=== PATIENT | female | born 1975 | race American Indian/Alaskan Native ===

== ENCOUNTER 2017-03-24 15:37 | Emergency (ER) | payer SELFPAY ==
[2017-03-24 16:20] LABS: Bacteria,Urine 2+ /HPF (Negative); Bilirubin,Urine NEG (Negative); Blood,Urine SM (Negative); Ketones,Urine NEG (Negative); Leukocyte Esterase,Urine LG (Negative); Mucus,Urine FEW /HPF; Nitrite,Urine NEG (Negative); Protein,Urine <15 mg/dL mg/dL (Negative); Urobilinogen,Urine < 2.0 mg/dL (<2.0)
[2017-03-25] MEDS ORDERED: HEPARIN 10,000 UNITS/10 ML ONE (00:24)
[2017-03-25] MEDS ORDERED: MACROBID PO ONE (01:58)
[2017-03-25] MEDS ORDERED: TYLENOL PO ONE (01:58)
--- NOTE | 2017-03-25 02:01 | Emergency Department Report ---
HPI - General Chief Complaint: Pain General Time Seen by Provider: 03/25/17 01:23 - HPI HPI: This is a 41-year-old -Turkish female presents to the emergency department with a 5 day history of generalized body aches. She has a intermittent headache that is mostly in the frontal region. She denies any vision change, slurred speech or any neurological deficits. She is 19 weeks at . She denies any abdominal pain, vaginal bleeding, dysuria, vaginal discharge. She has been having associated chills and sweats but has not actually checked her temperature for a fever. She did not take anything for her symptoms prior to presentation. She has a history of HIV and says she is compliant with the medications. She goes to [facility] from her [employer] and is on vitamins. No recent travel or sick contacts at home. ED Past Medical Hx - Past Medical History Previous Medical History?: Yes Hx HIV: Yes - Surgical History Past Surgical History?: No - Social History Smoking Status: Never Smoker Substance Use Type: None - Medications Home Medications: Home Medications Medication Instructions Recorded Confirmed Last Taken Type Gentamicin 0.3% Ophth Soln 2 drops OP Q4H #1 bottle 12/26/15 Unknown Rx HYDROcodone/APAP 5-325 [[place] 1 - 2 each PO Q6HR PRN #14 tablet 12/26/15 Unknown Rx 5/325] Ibuprofen [Motrin 800 MG tab] 800 mg PO Q8HR PRN #20 tablet 12/26/15 Unknown Rx Nitrofurantoin Monohyd/M-Cryst 100 mg PO BID #14 capsule 03/25/17 Unknown Rx [Macrobid 100 mg Capsule] ED Review of Systems ROS: Stated complaint: BODYACHES Other details as noted in HPI Comment: All other systems reviewed and negative Constitutional: chills. denies: weakness Eyes: denies: eye pain, eye discharge, vision change ENT: denies: ear pain, throat pain Respiratory: cough. denies: shortness of breath Cardiovascular: denies: chest pain, edema Gastrointestinal: denies: abdominal pain, nausea, vomiting Genitourinary: denies: dysuria, discharge Musculoskeletal: back pain, myalgia Skin: denies: rash, lesions Neurological: headache. denies: numbness, paresthesias Physical Exam - Physical Exam Vital Signs: Vital Signs 03/24/17 03/24/17 15:53 20:00 Temperature 99.7 F H 99.4 F Pulse Rate 117 H 105 H Respiratory 18 18 Rate Blood Pressure 122/69 119/72 O2 Sat by Pulse 100 100 Oximetry Physical Exam: GENERAL: The patient is well-developed well-nourished. HENT: Normocephalic. Atraumatic. Patient has moist mucous membranes. EYES: Extraocular motions are intact. Pupils equal reactive to light bilaterally. NECK: Supple. No meningitic signs are noted. There is no adenopathy noted. CHEST/LUNGS: Clear to auscultation. Occasional dry cough heard during examination. No tachypnea or accessory muscle use. There is no respiratory distress noted. HEART/CARDIOVASCULAR: Regular. There is no tachycardia. There is no gallop rub or murmur. ABDOMEN: Abdomen is soft, nontender. Patient has normal bowel sounds. Gravid uterus is palpable about the umbilicus. SKIN: Skin is warm and dry. NEURO: The patient is awake, alert, and oriented. The patient is cooperative. The patient has no focal neurologic deficits. The patient has normal speech. MUSCULOSKELETAL: There is no tenderness or deformity. There is no limitation range of motion. There is no evidence of acute injury. ED Course Vital Signs 03/24/17 03/24/17 15:53 20:00 Temperature 99.7 F H 99.4 F Pulse Rate 117 H 105 H Respiratory 18 18 Rate Blood Pressure 122/69 119/72 O2 Sat by Pulse 100 100 Oximetry ED Medical Decision Making - Lab Data Result diagrams: 03/25/17 03:11 03/25/17 03:11 - Radiology Data Radiology results: image reviewed interpreted by me: Chest x-ray does not show any acute process. There are no pleural effusions, obvious pneumonia and there is no pneumothorax. - Medical Decision Making This is a 41-year-old female who is about 19 weeks and has a history of HIV who presents with 4-5 days of body aches and some fever and chills. More recently she developed a slight cough. She also complains of some intermittent headaches. She does not have any focal, motor or sensory deficits in her cranial nerves are intact. The headache appears most likely to be secondary to her fever and what I believe is a viral syndrome. On top of that, the patient is and therefore we will avoid a CT scan of the head at this time. However a chest x-ray was done with a shielded abdomen to rule out pneumonia and the chest x-ray did not appear to show any pneumonia, pleural effusions or any acute process. The CBC showed some anemia but not at a level that requires transfusion. There is no leukocytosis. The patient was found to have some hypokalemia with potassium of 3 that was replaced with potassium chloride. She has a hyponatremia of a sodium of 129 and was given some IV fluid resuscitation. Her urinalysis shows a urinary tract infection and she was given a dose of Macrobid here. The patient herself is not complaining of any abdominal pain or any vaginal bleeding and therefore a full obstetric ultrasound did not appear to be necessary at this time. We did check heart tones which was about 140. She was given some Tylenol for her fever and discomfort with some improvement. She presented to the emergency department with a low-grade fever and some tachycardia that has since resolved. The patient says she is feeling improved and is asking for discharge home. We will attempt to treat her outpatient at this time with Macrobid and sent to medicine. She will return to the emergency Department with any worsening of her symptoms, intractable fever, development of abdominal pain or vaginal bleeding while , or any acute distress. All of the questions have been answered and discharge instructions were given while in the emergency department. - Differential Diagnosis URI, UTI, pneumonia, influenza Critical Care Time: No Critical care attestation.: If time is entered above; I have spent that time in minutes in the direct care of this critically ill patient, excluding procedure time. ED Disposition Clinical Impression: Viral syndrome, Hypokalemia, Hyponatremia UTI (urinary tract infection) Qualifiers: Urinary tract infection type: acute cystitis Hematuria presence: without hematuria Qualified Code(s): N30.00 - Acute cystitis without hematuria Qualifiers: Weeks of gestation: 19 weeks Qualified Code(s): Z3A.19 - 19 weeks gestation of Disposition: DC-01 TO HOME OR SELFCARE Is pt being admited?: No Condition: Stable Instructions: (ED), Hyponatremia (ED), Fever in Adults (ED), Hypokalemia (ED), Viral Syndrome (ED) Additional Instructions: Please follow-up with your primary care physician and your [employer] in the next few days. Return to the emergency department with any worsening of your symptoms, intractable fever, development of abdominal pain or vaginal bleeding, any shortness of breath, or any acute distress. You can use Tylenol every 4 hours, using weight-based dosing, as needed for fever or discomfort. Referrals: ARNULFO FINE MD [Staff Physician] - 3-5 Days [facility] [Outside] - 3-5 Days Time of Disposition: 06:11
[2017-03-25 03:37] LABS: Hematocrit 28.6 % (30.3-42.9); Hemoglobin 9.6 gm/dl (10.1-14.3); Mean Corpuscular HGB Conc 34 % (30-34); Mean Corpuscular Hemoglobin 30 pg (28-32); Mean Corpuscular Volume 91 fl (79-97); Platelet Count 187 K/mm3 (140-440); Red Blood Count 3.16 M/mm3 (3.65-5.03); Red Cell Distribution Width 14.2 % (13.2-15.2)
[2017-03-25 03:44] LABS: Anion Gap 21 mmol/L; BUN/Creatinine Ratio 8; Blood Urea Nitrogen 4 mg/dL (7-17); Calcium 7.8 mg/dL (8.4-10.2); Carbon Dioxide 17 mmol/L (22-30); Chloride 93.9 mmol/L (98-107); Creatine Kinase 285 units/L (30-135); Glucose 99 mg/dL (65-100); Sodium 129 mmol/L (137-145)
[2017-03-25] MEDS ORDERED: K-DUR PO ONE (03:45)
[2017-03-25] MEDS ORDERED: NACL 0.9% 1000 ML 1,000 ML IV ONE (03:45)
[2017-03-25 04:52] LABS: Blastocytes % (Manual) 0 %
[2017-03-25 04:53] LABS: Anisocytosis 1+; Basophils % (Manual) 0 % (0.0-1.8); Eosinophils % (Manual) 0 % (0.0-4.3); Hypochromasia 1+
[2017-03-25 04:54] LABS: Diff Status Complete; Elliptocytes Few; Ovalocytes 1+
[2017-03-25 06:13] VITALS: BP 100/59
--- NOTE | 2017-03-25 06:46 | XRay Report ---
FINAL REPORT EXAM: XR CHEST 1V AP HISTORY: fever, cough TECHNIQUE: AP portable view(s) of the chest obtained. PRIORS: None. FINDINGS: No mediastinal shift. Cardiac silhouette is not enlarged. No pneumothorax, effusion, or focal pulmonary opacity identified. No acute skeletal findings. IMPRESSION: No acute pulmonary finding identified.
== END 2017-03-25 06:30 | disposition home or self-care (01) ==
LOC: ED 15:37
DX: O23.42 Unspecified infection of urinary tract in pregnancy, second trimester (principal); N30.00 Acute cystitis without hematuria; O98.512 Other viral diseases complicating pregnancy, second trimester; B34.9 Viral infection, unspecified; E87.6 Hypokalemia; E87.1 Hypo-osmolality and hyponatremia; Z21 Asymptomatic human immunodeficiency virus [HIV] infection status; Z3A.19 19 weeks gestation of pregnancy
CPT/HCPCS: 36415; 71010; 80048; 81001; 82550; 84443; 85007; 85025; 87400; 96360; 99284; J7030; J1644

== ENCOUNTER 2017-08-06 16:56 | Outpatient (CLI) | payer SELFPAY ==
--- NOTE | 2017-08-06 19:05 | Ultrasound Report ---
FINAL REPORT PROCEDURE: US OB BPP WO NON-STRESS TECHNIQUE: Sonographic evaluation for breathing, movement, tone, and amniotic fluid volume was performed. CPT 65350 HISTORY: wellbeing post dates COMPARISON: No prior studies are available for comparison. FINDINGS: There is a single living intrauterine gestation currently visualized in the vertex presentation with heart rate of 152 beats per minute. Biophysical profile study was performed: Amniotic fluid volume: Normal-score 2. At least one vertical pocket > 2 cm or more in vertical axis. Amniotic fluid index 12.8 centimeter which is within normal limits. Subjectively the amount of amniotic fluid also appears normal. breathing: Normal-score 2. movement: Normal-score 2. tone: Normal. Score: 8 of 8. IMPRESSION: Biophysical profile score 8/8. Single living intrauterine gestation currently visualize vertex presentation.
--- NOTE | 2017-08-06 19:09 | Ultrasound Report ---
FINAL REPORT PROCEDURE: US OB LIMITED TECHNIQUE: Real-time limited sonographic examination was performed for evaluation of positioning, heart rate, amniotic fluid volume for each fetus with image documentation (1 or more fetuses). CPT 72382 HISTORY: wellbeing post dates COMPARISON: No prior studies are available for comparison. FINDINGS: Limited study was performed showing a single living intrauterine gestation currently vertex presentation with heart rate of 152 beats per minute. Subjectively the amount of amniotic fluid appears normal. The amniotic fluid index is normal measuring 12.8 centimeter. measurements were not obtained. Placenta appears to be located anteriorly and is grade 2. Internal cervical os was not visualized. Further evaluation with the the requested nor performed. IMPRESSION: Single living intrauterine gestation visualized currently vertex presentation. Subjectively and by amniotic fluid index the amount of amniotic fluid appears normal. Grade 2 placenta appears to be located anteriorly. The entire placenta was not visualized. No gross abnormality is seen. The internal cervical os was not visualized.
== END 2017-08-06 19:05 | disposition home or self-care (01) ==
LOC: TRG 16:56
PROVIDERS: ATTEND Obstetrics & Gynecology
DX: O09.523 Supervision of elderly multigravida, third trimester (principal); O47.1 False labor at or after 37 completed weeks of gestation; Z3A.37 37 weeks gestation of pregnancy
CPT/HCPCS: 59025; 76815; 76819

== ENCOUNTER 2017-08-24 10:19 | Outpatient (CLI) | payer OTHER ==
[2017-08-24 11:54] VITALS: BP 104/65
== END 2017-08-24 11:51 | disposition home or self-care (01) ==
LOC: TRG 10:19 → LD 10:20 → TRG 11:51
PROVIDERS: ATTEND Obstetrics & Gynecology
DX: O09.523 Supervision of elderly multigravida, third trimester (principal); O48.0 Post-term pregnancy; Z3A.40 40 weeks gestation of pregnancy
CPT/HCPCS: 59025

== ENCOUNTER 2017-08-27 08:24 | Inpatient (IN) | payer SELFPAY ==
--- NOTE | 2017-08-27 10:21 | History and Physical Report ---
History of Present Illness Date of examination: 08/27/17 Date of admission: 08/27/17 08:24 Chief complaint: Induction of labor History of present illness: Pt is a 42yo BF EDC 08/19/17; EGA 41 1/7 weeks presents for induction of labor due to postdates. She received care at [facility] since 18 weeks, and care is significant for HIV Positive with undetected viral load. records are available and GBS is Negative. Past History Past Medical History: hematologic disorders (HIV Positive) Past Surgical History: no surgical history [employer] History: HIV Family/Genetic History: none Social history: no significant social history, single - Obstetrical History Expected Date of Delivery: 08/19/17 Actual Gestation: 41 Week(s) 1 Day(s) : 5 Medications and Allergies Allergies Allergy/AdvReac Type Severity Reaction Status Date / Time No Known Allergies Allergy Verified 03/24/17 15:53 Home Medications Medication Instructions Recorded Confirmed Last Taken Type Gentamicin 0.3% Ophth Soln 2 drops OP Q4H #1 bottle 12/26/15 08/27/17 Unknown Rx HYDROcodone/APAP 5-325 [[place] 1 - 2 each PO Q6HR PRN #14 tablet 12/26/15 Unknown Rx 5/325] Ibuprofen [Motrin 800 MG tab] 800 mg PO Q8HR PRN #20 tablet 12/26/15 08/27/17 Unknown Rx Complera (Nf) 200-25-300 mg 1 mg PO DAILY 08/27/17 08/27/17 08/27/17 09:00 History Nitrofurantoin Monohyd/M-Cryst 200 mg PO BID 08/27/17 08/27/17 Unknown History [Macrobid 100 mg Capsule] Review of Systems All systems: negative - Vital Signs Vital signs: Vital Signs Temp Resp 97.1 F L 18 08/27/17 08:49 08/27/17 08:49 Temp Pulse Resp BP Pulse Ox 97.1 F L 18 08/27/17 08:49 08/27/17 08:49 - Physical Exam Breasts: Positive: deferred Cardiovascular: Regular rate Lungs: Positive: Clear to auscultation Abdomen: Positive: normal appearance, soft Genitourinary (Female): Positive: normal external genitalia Uterus: Positive: enlarged Extremities: Positive: normal - Obstetrical FHR: category 1 Uterine Contraction Monitor Mode: External Cervical Dilatation: 4 Uterine Contraction Pattern: Absent Uterine Tone Measurement Phase: Contraction Results Result Diagrams: 08/27/17 Unknown All other labs normal. Assessment and Plan - Patient Problems (1) 41 weeks gestation of Onset Date: 08/27/17 Current Visit: Yes Status: Acute Plan to address problem: A: IUP @ 41 1/7 weeks HIV Positive P: Admit to L&D for pitocin induction of labor IV AZT protocol Expectant vaginal delivery (2) HIV antibody positive Onset Date: 08/27/17 Current Visit: Yes Status: Chronic
[2017-08-27] MEDS ORDERED: BRETHINE SUB-Q PRN (11:32)
[2017-08-27] MEDS ORDERED: ePHEDrine SULFATE IV PRN ×2 (11:32→15:44)
[2017-08-27] MEDS ORDERED: BRETHINE IVP PRN (11:32)
[2017-08-27] MEDS ORDERED: XYLOCAINE 2% INFILTRATI ONE ×2 (11:32→17:25)
[2017-08-27] MEDS ORDERED: SUBLIMAZE IV PRN (11:32)
[2017-08-27] MEDS ORDERED: STADOL IV PRN (11:32)
[2017-08-27] MEDS ORDERED: MINERAL OIL PO PRN (11:32)
[2017-08-27] MEDS ORDERED: ZOFRAN IV PRN ×2 (11:32→17:47)
[2017-08-27] MEDS ORDERED: PHENERGAN PO PRN ×2 (11:32→17:47)
[2017-08-27] MEDS ORDERED: PITOCin/NS 20 UNIT/1000ML DRIP 20 UNITS/1,000 ML BAG IV SCH ×2 (12:00→19:00)
[2017-08-27] MEDS ORDERED: PITOCin/NS 30 UNIT/500ML 30 UNITS/500 ML BAG IV SCH ×2 (12:00)
[2017-08-27 12:27] LABS: Hematocrit 31.7 % (30.3-42.9); Hemoglobin 10.4 gm/dl (10.1-14.3); Mean Corpuscular HGB Conc 33 % (30-34); Mean Corpuscular Hemoglobin 31 pg (28-32); Mean Corpuscular Volume 93 fl (79-97); Platelet Count 274 K/mm3 (140-440); Red Blood Count 3.41 M/mm3 (3.65-5.03); Red Cell Distribution Width 14.3 % (13.2-15.2)
[2017-08-27] MEDS: LACTATED RINGERS 1,000 ML IV SCH ×2 (12:50→16:53)
[2017-08-27] MEDS ORDERED: NARCAN 2 MG/2 ML IV PRN (15:42)
--- NOTE | 2017-08-27 15:43 | Anesthesia Consultation ---
Anesthesia Consult and Med Hx Date of service: 08/27/17 - Airway Anesthetic Teeth Evaluation: Good ROM Head & Neck: Adequate Mental/Hyoid Distance: Adequate Mallampati Class: Class II Intubation Access Assessment: Probably Good - Pre-Operative Health Status ASA Pre-Surgery Classification: ASA2 Proposed Anesthetic Plan: Epidural, Spinal - Pulmonary Hx Asthma: No COPD: No Hx Pneumonia: No - Cardiovascular System Hx Hypertension: No - Central Nervous System Hx Seizures: No Hx Psychiatric Problems: No - Endocrine Hx Renal Disease: No Hx End Stage Renal Disease: No Hx Hypothyroidism: No Hx Hyperthyroidism: No - Hematic Hx Anemia: No Hx Sickle Cell Disease: No - Other Systems Hx Alcohol Use: No Hx Obesity: Yes (BMI 38.0)
[2017-08-27] MEDS ORDERED: RETROVIR IV SCH (16:00)
[2017-08-27] MEDS ORDERED: D5W IV SCH (16:00)
[2017-08-27] MEDS ORDERED: RETROVIR IV ONE (16:45)
[2017-08-27] MEDS ORDERED: D5W IV ONE (16:45)
[2017-08-27] MEDS ORDERED: fentaNYL-BUPIV 2 MCG/ML-0.125% 200 MCG/100 ML BAG EPIDURAL SCH (17:00)
[2017-08-27] MEDS ORDERED: RETROVIR 400 MG in D5W 160 ML IV SCH (17:00)
--- NOTE | 2017-08-27 17:45 | Procedure Note ---
OB Delivery Note - Delivery Date of Delivery: 08/27/17 Surgeon: ALAN BRENNAN Estimated blood loss: 200cc - Vaginal Delivery presentation: vertex Delivery position: OA Intrapartum events: other(please specify) (HIV positive) Delivery induction: oxytocin Delivery augmentation: rupture of membranes, pitocin Delivery monitor: external FHT, external uterine Route of delivery: Delivery placenta: spontaneous Delivery cord: 3 umbilical vessels Episiotomy: none Delivery laceration: 2nd degree (perineal) Delivery repair: vicryl Anesthesia: local Delivery comments: Infant delivered OA and placed on Mom's chest for [id number] bonding and delayed cord clamping by Dad - A at 1 minute: 8 at 5 minutes: 9 Infant Gender: Male (4080gms)
[2017-08-27] MEDS ORDERED: MILK OF MAGNESIA PO PRN (17:47)
[2017-08-27] MEDS ORDERED: PHENERGAN PR PRN (17:47)
[2017-08-27] MEDS ORDERED: TYLENOL PO PRN (17:47)
[2017-08-27] MEDS ORDERED: TUCKS PAD TP PRN (17:47)
[2017-08-27] MEDS ORDERED: DULCOLAX PR PRN (17:47)
[2017-08-27] MEDS ORDERED: LANSINOH TP PRN (17:47)
[2017-08-27] MEDS ORDERED: BENADRYL PO PRN (17:47)
[2017-08-27] MEDS ORDERED: SODIUM CHLORIDE FLUSH SYRINGE 10 ML IV SCH (18:00)
[2017-08-27] MEDS: MOTRIN PO SCH (21:06)
[2017-08-27] MEDS: COLACE PO SCH (22:54)
[2017-08-27] MEDS: FEOSOL PO SCH (22:54)
[2017-08-28] MEDS: NORCO 5/325 PO PRN ×2 (01:16→17:08)
[2017-08-28] MEDS ORDERED: BOOSTRIX IM ONE (06:00)
[2017-08-28] MEDS: MOTRIN PO SCH ×3 (06:21→17:07)
[2017-08-28 06:30] LABS: Hematocrit 27.4 % (30.3-42.9)
--- NOTE | 2017-08-28 09:02 | Progress Note ---
Assessment and Plan - Patient Problems (1) 41 weeks gestation of Onset Date: 08/27/17 Current Visit: Yes Status: Resolved (2) HIV antibody positive Onset Date: 08/27/17 Current Visit: Yes Status: Chronic (3) (normal spontaneous vaginal delivery) Onset Date: 08/28/17 Current Visit: Yes Status: Resolved Plan to address problem: A: S/P - PPD #1 Doing well HIV Positive P: May go home tomorrow. Subjective - Subjective Date of service: 08/28/17 Principal diagnosis: s/p - PPD #1 Interval history: Pt is feeling well without complaints. Bleeding improved. Patient reports: appetite normal, voiding normally, pain well controlled, flatus , ambulating normally, no dizzy ambulation, no nauseated : doing well, bottle feeding Objective - Vital Signs Latest vital signs: Vital Signs Temp Pulse Resp BP Pulse Ox 08/28/17 05:44 97.9 F 95 H 20 105/60 93 08/28/17 01:52 98.3 F 81 20 108/64 96 08/28/17 01:16 18 08/27/17 21:06 18 08/27/17 20:43 98.4 F 99 H 20 118/76 98 Intake and Output 08/27/17 08/28/17 08/28/17 22:59 06:59 14:59 Intake Total 866.25 240 Output Total 500 1000 Balance 366.25 -760 Intake: IV 506.25 Lactated Ringers 1,000 ml 506.25 @ 125 mls/hr IV DIRECT ZARINA Rx#:[id number] Oral 360 Intake, Free Water 240 Output: Urine 500 1000 Void 500 1000 Other: Total, Intake Amount 360 Total, Output Amount 500 1000 Estimated Blood Loss 200 - Exam Breasts: Present: deferred Cardiovascular: Present: Regular rate Lungs: Present: Clear to auscultation Abdomen: Present: normal appearance, soft Uterus: Present: normal, firm, fundal height below umbilicus Extremities: Present: normal - Labs Labs: Abnormal lab results 08/27/17 08/28/17 Range/Units Unknown 06:15 RBC 3.41 L (3.65-5.03) M/mm3 Hgb 9.0 L (10.1-14.3) gm/dl Hct 27.4 L (30.3-42.9) % Laboratory Tests 08/27/17 08/27/17 08/28/17 10:55 Unknown 06:15 WBC 5.1 RBC 3.41 L Hgb 10.4 9.0 L Hct 31.7 27.4 L MCV 93 MCH 31 MCHC 33 RDW 14.3 Plt Count 274 Blood Type O POSITIVE Antibody Screen Negative
--- NOTE | 2017-08-28 09:15 | Discharge Summary ---
Providers - Providers Date of Admission: 08/27/17 08:24 Date of discharge: 08/29/17 Attending physician: ALAN BRENNAN 08/27/17 16:00 Consult to Physician [CONS] Urgent Comment: Consulting Provider: DANIEL MCKEON Physician Instructions: Reason For Exam: HIV Positive Primary care physician: ALAN BRENNAN Hospitalization Reason for admission: active labor, IUP at term Delivery: Episiotomy: none Laceration: 2nd degree Other procedures: none complications: none Discharge diagnosis: IUP at term delivered Meno baby: male Hospital course: Unremarkable. Condition at discharge: Good Disposition: DC-01 TO HOME OR SELFCARE - Discharge Diagnoses (1) 41 weeks gestation of Status: Resolved (2) HIV antibody positive Status: Chronic (3) (normal spontaneous vaginal delivery) Status: Resolved Plan - Discharge Medications Prescriptions: Ferrous Sulfate [Feosol 325 MG tab] 325 mg PO BID #30 tablet Ibuprofen [Motrin 600 MG tab] 600 mg PO Q6HR #30 tablet Vit-Fe Fumar-FA [ Vitamin] 1 each PO QDAY #30 tablet - Provider Discharge Summary Activity: routine, no sex for 6 weeks, no heavy lifting 4 weeks, no strenuous exercise Diet: routine Instructions: routine Additional instructions: [] Smoking cessation referral if applicable(refer to patient education folder for contact #) [] Refer to [facility] Booklet Call your doctor immediately for: * Fever > 100.5 * Heavy vaginal bleeding ( >1 pad per hour) * Severe persistent headache * Shortness of breath * Reddened, hot, painful area to leg or breast * Drainage or odor from incision. * Keep incision clean and dry at all times and follow doctor's instructions regarding bathing/showering - Follow up plan Follow up: ALAN BRENNAN MD [Primary Care Provider] - 6 Weeks
[2017-08-28] MEDS: COLACE PO SCH ×2 (10:12→22:00)
[2017-08-28] MEDS: FEOSOL PO SCH ×2 (10:12→22:00)
[2017-08-28] MEDS: PRENATAL VITAMIN PO SCH (10:13)
[2017-08-28] MEDS ORDERED: M-M-R II VACCINE SUB-Q ONE (17:47)
[2017-08-29] MEDS: NORCO 5/325 PO PRN (06:19)
[2017-08-29] MEDS: MOTRIN PO SCH ×3 (06:20→12:22)
[2017-08-29] MEDS: FEOSOL PO SCH (10:42)
[2017-08-29] MEDS: COLACE PO SCH (10:42)
[2017-08-29] MEDS: PRENATAL VITAMIN PO SCH (10:42)
[2017-08-29 18:29] VITALS: BP 115/73
[2017-08-30 18:41] LABS: HIV-1 RNA QN PCR <1.30 Log cps/mL; HIV-1 RNA QN PCR <20 Copies/mL
== END 2017-08-29 16:30 | disposition home or self-care (01) | DRG 774 ==
LOC: LD 08:24 → OB 19:08
PROVIDERS: ADMIT Obstetrics & Gynecology; ATTEND Obstetrics & Gynecology
PROC: 0KQM0ZZ Repair Perineum Muscle, Open Approach (ICD-10-PCS; principal; 2017-08-27)
PROC: 10E0XZZ Delivery of Products of Conception, External Approach (ICD-10-PCS; 2017-08-27)
PROC: 3E033VJ Introduction of Other Hormone into Peripheral Vein, Percutaneous Approach (ICD-10-PCS; 2017-08-27)
PROC: 10E0XZZ Delivery of Products of Conception, External Approach (ICD-10-PCS; 2017-08-27)
DX: O98.72 Human immunodeficiency virus [HIV] disease complicating childbirth (principal); O70.1 Second degree perineal laceration during delivery; Z37.0 Single live birth; Z3A.41 41 weeks gestation of pregnancy
CPT/HCPCS: 36415; 85014; 85018; 85027; 86592; 86850; 86900; 86901; 87536; 87901; J2590; J3010; J3485; J7120